=== PATIENT | male | born 1975 | race Caucasian/White ===

== ENCOUNTER 2020-06-21 17:22 | Emergency (ER) | payer OTHER, SELFPAY ==
[2020-06-21 17:31] VITALS: BP 129/83; PULSE 93; RESP 16; TEMP 37.4; O2SAT 98
--- NOTE | 2020-06-21 17:37 | ED.SKABFB ---
HPI - Skin/Abscess/Foreign Bdy General Chief complaint: Skin/Abscess/Foreign Body Stated complaint: right leg pain Time Seen by Provider: 06/21/20 17:38 Source: patient and RN notes reviewed Mode of arrival: ambulatory Limitations: no limitations History of Present Illness HPI narrative: 45-year-old male who presents to [facility] with complaints of 2-day history of right lower leg swelling, redness, warmth, and pain. Patient states he has past history of lower leg cellulitis to the same leg in the past. Patient states that his right lower leg is always somewhat red but its has increased in redness, no open wounds identified or any drainage from right lower leg. Right leg does have some warmth to mid lower leg aspect with pulses present to right foot. Patient states that he did have 102 F fever last evening and has been taking Advil for his discomfort. complaint: other (Cellulitis) Onset (ago): day(s) (2) Related Data Home Medications Medication Instructions Recorded Confirmed Lasix 06/21/20 alprazolam 06/21/20 dapagliflozin [Farxiga] mg 06/21/20 sertraline mg 06/21/20 Allergies Allergy/AdvReac Type Severity Reaction Status Date / Time acetaminophen Allergy Mild Unverified 02/01/10 00:09 hydrocodone Allergy Mild Unverified 02/01/10 00:09 Review of Systems Review of Systems: Narrative: CONSTITUTIONAL: Positive for intermittent fever, chills, or sweats. EYES: Denies visual changes, redness, or discharge. ENT: Denies rhinorrhea, congestion, sore throat, or otalgia. CARDIOVASCULAR: Denies chest pain, palpitations, or edema. RESPIRATORY: Denies cough or dyspnea. GASTROINTESTINAL: Denies abdominal pain, nausea, vomiting, or diarrhea. GENITOURINARY: Denies dysuria or hematuria. SKIN: Denies rash or itching. MUSCULOSKELETAL: Denies back pain, joint pain, or myalgia, redness with swelling, and warmth right lower leg, no drainage or open skin areas. NEUROLOGIC: Denies headache, numbness, or weakness. PSYCHIATRIC: Positive history of anxiety or depression. All systems reviewed & are unremarkable except as noted in HPI and below [facility] Past Medical History Medical History (Updated 06/22/20 @ 00:01 by Elva Datong) Anxiety and depression COPD (chronic obstructive pulmonary disease) Diabetes Family History Family History (Updated 06/24/20 @ 09:25 by Janeen Carcamo NP) Other No significant family history Social History Social History (Updated 06/21/20 @ 17:59 by Janeen Carcamo NP) Smoking status: Former smoker Living arrangements: with family Gender identity (if verbalized by the patient): Male Comments At time of signature, agree with nursing past medical, surgical, social and family history. There is no relevant family history pertinent to the presenting complaint Exam Narrative: Exam Narrative: GENERAL: Well-appearing, well-nourished, obese and in no acute distress. HEAD: Normocephalic, atraumatic. EYES: PERRLA and EOMI. ENT: Nares clear, no rhinorrhea or epistaxis. Mucous membranes moist. NECK: Supple.no lymphadenopathy CHEST: Clear to auscultation. No respiratory distress.SAO2 98% on room air HEART: Regular rate and rhythm. No murmur heard. Normal peripheral pulses. ABDOMEN: Soft, nontender, nondistended, normal active bowel sounds. EXTREMITIES: Normal range of motion.right lower leg edema.negative Vida sign, denies any pain to calf area, pedal pulse present on palpation. SKIN: Warm, dry, red lower right leg with no open wounds, monzon area to mid upper leg. NEURO: No focal deficits. Alert and oriented x3. Course Vital Signs Vital signs: Vital Signs Temperature 37.4 C 06/21/20 17:31 Pulse Rate 93 06/21/20 17:31 Respiratory Rate 16 06/21/20 17:31 Blood Pressure 129/83 06/21/20 17:31 Pulse Oximetry 98 06/21/20 17:31 Temperature 37.4 C 06/21/20 17:31 Pulse Rate 93 06/21/20 17:31 Respiratory Rate 16 06/21/20 17:31 Blood Pressure 129/83 06/21/20 1
== END 2020-06-21 17:54 | disposition home or self-care (01) ==
PROVIDERS: Emergency Provider Registered Nurse; PCP Internal Medicine
DX: L03.115 Cellulitis of right lower limb (principal); J44.9 Chronic obstructive pulmonary disease, unspecified; E11.9 Type 2 diabetes mellitus without complications; Z87.891 Personal history of nicotine dependence
CPT/HCPCS: 99203; G0463

== ENCOUNTER 2023-07-21 21:51 | Inpatient (IN) | payer OTHER, SELFPAY ==
[2023-07-21] VITALS (11 sets, daily range): BP systolic 125–147; BP diastolic 67–80; PULSE 101–120; RESP 15–23; TEMP 37.2–38.3; O2SAT 96–100
--- NOTE | ~2023-07-21 | XR_ITS ---
Portable chest x-ray Comparison: 12/15/2013 Clinical History: Sepsis Findings: Focal hazy opacity right lung base noted. Left lung clear. Cardiomediastinal silhouette i s stable. Bones and soft tissues are unremarkable. Impression: Focal haziness right lung base. Correlate for atelectasis or pneumonia. Reviewed, dictated and finalized at [facility]. Impression: Focal haziness right lung base. Correlate for atelectasis or pneumonia.
--- NOTE | ~2023-07-21 | US_ITS ---
EXAMINATION: US venous doppler [facility] DATE: 07/22/2023 12:22 INDICATION: Left lower limb pain, swelling and erythema TECHNIQUE: Grayscale ultrasound images without and with compression and Doppler ultrasound images of the left lower extremity veins were obtained. COMPARISON: None. FINDINGS: The visualized portions of left common femoral vein, profunda (deep) femoral vein, femoral vein, popl iteal vein, peroneal veins, posterior tibial veins and greater saphenous vein outflow are patent. IMPRESSION: 1. No deep venous thrombosis in the left lower limb. Reviewed, dictated and finalized at location A.
--- NOTE | 2023-07-21 22:08 | ED.FEVER ---
HPI - Fever General Chief Complaint: Fever <SHARON Mensah Last Filed: 07/22/23 13:50> Stated Complaint: bodyaches, fever, cellulitis? <SHARON Menash Last Filed: 07/22/23 13:50> Time Seen by Provider: 07/21/23 22:06 <SHARON Mensah Last Filed: 07/22/23 13:50> Source: patient <SHARON Mensah Last Filed: 07/22/23 13:50> Mode of arrival: ambulatory <SHARON Mensah Last Filed: 07/22/23 13:50> Limitations: no limitations <SHARON Mensah Last Filed: 07/22/23 13:50> History of Present Illness HPI Narrative: Patient is a 48-year-old male, with pmh of prediabetes, who presents to the ED with report of fever, myalgias, left lower extremity cellulitis. Patient reports he began feeling ill this afternoon with diffuse body aches, chills, fever, nausea, headache. He does report having increased pain in his left lower extremity with some redness in this area. He does have history of recurrent cellulitis of his lower extremities, particularly his left lower extremity and states these symptoms feel similar to the episodes he has experienced in the past. Patient took ibuprofen prior to arrival. He denies significant swelling in lower extremity. Denies history of blood clots. Denies chest pain or shortness breath. Denies cough or cold symptoms. Denies sick contacts. <SHARON Mensah Last Filed: 07/22/23 13:50> Related Data Home Medications: Home Medications Medication Instructions Recorded Confirmed alprazolam 1 mg tablet 1 mg PO TID PRN Anxiety 06/21/20 07/22/23 sertraline 100 mg tablet 100 mg PO DAILY 06/21/20 07/22/23 albuterol sulfate 90 mcg/actuation 2 puff inhalation PRN PRN 07/22/23 07/22/23 aerosol inhaler Shortness Of Breath Or Wheezing furosemide 80 mg tablet (Lasix) 80 mg PO DAILY 07/22/23 07/22/23 ibuprofen 600 mg tablet 600 mg PO TID PRN Pain 07/22/23 07/22/23 <Maggie Virk PA-C - Last Filed: 07/22/23 13:50> Allergies/Adverse Reactions: Allergies Allergy/AdvReac Type Severity Reaction Status Date / Time hydrocodone Allergy Mild Gastrointestinal Verified 07/21/23 22:47 Upset <Maggie Virk PA-C - Last Filed: 07/22/23 13:50> Review of Systems Review of Systems: CONSTITUTIONAL: See HPI. CARDIOVASCULAR: Denies chest pain, palpitations, or edema. RESPIRATORY: Denies cough or dyspnea. GASTROINTESTINAL: Reports nausea. Denies abdominal pain, vomiting, or diarrhea. MUSCULOSKELETAL: Reports myalgia. NEUROLOGIC: See HPI. <SHARON Mensah Last Filed: 07/22/23 13:50> All systems reviewed & are unremarkable except as noted in HPI and below <SHARON Mensah Last Filed: 07/22/23 13:50> [facility] Past Medical History Medical History: Medical History Anxiety and depression COPD (chronic obstructive pulmonary disease) Diabetes <SHARON Mensah Last Filed: 07/22/23 13:50> Family History Family History: Family History Other No significant family history <SHARON Mensah Last Filed: 07/22/23 13:50> Social History Social History: Social History Smoking status: Former smoker Alcohol intake: current Drinks per week: 1 Substance use: never Do You Feel Safe in your Home?: Yes Lack of Transportation: No Lack of Food: Never True Current Housing: I Have Housing Concerned About Future Housing: No Difficulty Paying Gas/Electric Bills: No Difficulty Paying for Meds: No Currently Unemployed: No Education: Associate Degree Difficulty w/ Childcare or Family Care: No Living arrangements: with family Gender identity (if verbalized by the patient): Male Spiritual care concerns: No <Maggie Virk PA-C -
[2023-07-21] MEDS: SODIUM CHLORIDE 0.9% IV 1,000 ML 999 ML IV CONT ×2 (22:47→23:31)
[2023-07-21] MEDS: ACETAMINOPHEN 500 MG TABLET 1000 MG PO (22:48)
[2023-07-21 22:51] LABS: Hematocrit 41.5 % (42.0-52.0); Hemoglobin 13.7 g/dL (14.0-18.0); Mean Corpuscular Hemoglobin 27.2 pg (26-34); Mean Corpuscular Volume 82.5 fl (80-100); Mean Platelet Volume 11.4 fl (7.4-10.4); Platelet Count Result 159 k/mm3 (150-375); Red Blood Count 5.03 M/mm3 (4.6-6.20); Red Cell Distribution Width 12.9 % (11.5-14.5); White Blood Count 22.4 K/mm3 (4.5-10.0)
[2023-07-21 23:16] LABS: Lactic Acid Reflex 2.4 mmol/L (0.7-2.0)
[2023-07-21 23:22] LABS: Alanine Aminotransferase 36 U/L (6-50); Albumin Level 4.1 g/dL (3.5-5.1); Alkaline Phosphatase 67 U/L (38-126); Anion Gap 11 mmol/L (4-12); Aspartate Amino Transferase 24 U/L (17-59); Bilirubin,Total 1.2 mg/dL (0.2-1.3); Blood Urea Nitrogen 16 mg/dL (9-20); CRP 5.4 mg/dL (<1.0); Carbon Dioxide 22 mmol/L (22-30); Chloride 98 mmol/L (98-107); Estimated CRCL calculation 130 ml/min; Estimated Glomerular Filt Rate > 60; Glucose 274 mg/dL (65-110); Potassium 4.3 mmol/L (3.4-5.0); Sodium 131 mmol/L (137-145)
[2023-07-21 23:33] LABS: Influenza A QL RT-PCR Negative (Negative); Influenza B QL RT-PCR Negative (Negative); RSV RNA, RT-PCR Negative (Negative); SARS-CoV-2 RNA PCR Negative (Negative)
[2023-07-21 23:43] LABS: Band Neutrophils Percent 8 % (0-6); Lymphocytes Absolute Manual 0.67 K/mm3 (1.1-4.5); Monocytes Absolute Manual 0.89 K/mm3 (0.1-0.90); Monocytes Percent Manual 4 % (3-9); Neutrophils Absolute Manual 20.83 K/mm3 (1.3-6.7); Neutrophils Percent Manual 85 % (46-73); Platelet Estimate Adequate (Adequate); Total Cells Counted 100
[2023-07-21 23:44] LABS: Schistocytes None Seen
[2023-07-21 23:45] LABS: Partial Thromboplastin Time 27.1 Seconds (22.3-36.8)
[2023-07-21 23:53] LABS: D Dimer 0.34 ug/mL (<0.48)
[2023-07-22] VITALS (21 sets, daily range): BP systolic 125–147; BP diastolic 59–77; PULSE 92–107; RESP 12–20; TEMP 36.6–38.3; O2SAT 93–98; BMI 51.1
[2023-07-22 00:26] LABS: Appearance Urine Clear (Clear); Bilirubin Urine Negative (Negative); Blood Urine Negative (Negative); Color Urine Yellow (Yellow); Glucose Urine UA 3+ mg/dL (Negative); Ketones Urine Trace mg/dL (Negative); Leukocyte Esterase Ur Negative LEU/UL (Negative); Nitrate Urine Negative (Negative); Protein Urine Negative (Negative); Specific Grav Ur 1.026 (1.001-1.035); Urobilinogen Urine 0.2 mg/dL (<2.0)
[2023-07-22 00:28] LABS: Add Urine Microscopic? NO
--- NOTE | 2023-07-22 00:39 | PC.NURSE ---
Patients voices concern about being admitted and states I may just want to take him somewhere else. ERP notified and going to speak with patient.
[2023-07-22] MEDS: ceFAZolin 1 GM/NS 50 ML 1 GM/50 ML BAG IVPB (00:43)
--- NOTE | 2023-07-22 01:10 | PC.NURSE ---
MAR is down at this time, patient IV abx finished infusing at this time.
[2023-07-22 01:48] LABS: Reflex Lactic Acid Yes or No Add Lactic
--- NOTE | 2023-07-22 02:34 | PM.IMHP ---
H&P: HPI History of Present Illness Date/Time: 07/22/23 02:34 Chief Complaint: Patient into the ER for evaluation with complaints of left lower leg swelling and redness Narrative: Our patient is a pleasant 48 years old morbidly obese white male who came to the ER for evaluation complaining of fever, chills, muscle aches, left lower leg swelling and redness. He complains of swelling of the left lower leg for couple of days but noticed redness and pain today. He complains of infections in his legs, left more than the right on few occasions over the last couple of years. He was diagnosed with diabetes mellitus earlier, he lost a lot of weight but not taking any diabetic medications. Workup was done in the ER which showed finding consistent with sepsis caused by bilateral lower leg cellulitis, left more than right. He was given aggressive septic doses of IV fluids and antibiotics in the ED and being admitted for medical management, further evaluation and workup. Review of Systems Review of Systems: 14 systems were reviewed with pertinent positives and negatives per HPI. Except as documented in the HPI/progress notes, all other systems were reviewed and are negative. All systems reviewed & are unremarkable except as noted in HPI and below PMF[facility] Past Medical History Medical History Anxiety and depression COPD (chronic obstructive pulmonary disease) Diabetes Family History Family History Other No significant family history Social History Social History Smoking status: Former smoker Alcohol intake: current Drinks per week: 1 Substance use: never Do You Feel Safe in your Home?: Yes Lack of Transportation: No Lack of Food: Never True Current Housing: I Have Housing Concerned About Future Housing: No Difficulty Paying Gas/Electric Bills: No Difficulty Paying for Meds: No Currently Unemployed: No Education: Associate Degree Difficulty w/ Childcare or Family Care: No Living arrangements: with family Gender identity (if verbalized by the patient): Male Spiritual care concerns: No Meds Home Medications and Allergies Home Medications Medication Instructions Recorded Confirmed Type alprazolam 1 mg tablet 1 mg PO TID PRN Anxiety 06/21/20 07/22/23 History sertraline 100 mg tablet 100 mg PO DAILY 06/21/20 07/22/23 History albuterol sulfate 90 mcg/actuation 2 puff inhalation PRN PRN 07/22/23 07/22/23 History aerosol inhaler Shortness Of Breath Or Wheezing furosemide 80 mg tablet (Lasix) 80 mg PO DAILY 07/22/23 07/22/23 History ibuprofen 600 mg tablet 600 mg PO TID PRN Pain 07/22/23 07/22/23 History Allergies Allergy/AdvReac Type Severity Reaction Status Date / Time hydrocodone Allergy Mild Gastrointestinal Verified 07/21/23 22:47 Upset Vital Signs Vital Signs - 24 hr 07/21/23 21:53 07/21/23 22:09 07/21/23 22:11 Temperature 38.3 C H Pulse Rate 120 H Respiratory Rate 20 Blood Pressure 125/67 133/73 Pulse Oximetry 100 97 98 Oxygen Delivery Room Air 07/21/23 22:15 07/21/23 22:30 07/21/23 22:45 Temperature Pulse Rate 112 H 107 H 108 H Respiratory Rate 17 15 18 Blood Pressure Pulse Oximetry 96 98 97 Oxygen Delivery 07/21/23 23:00 07/21/23 23:01 07/21/23 23:15 Temperature Pulse Rate 103 H 104 H 106 H Respiratory Rate 17 15 15 Blood Pressure 147/80 H Pulse Oximetry 99 Oxygen Delivery 07/21/23 23:30 07/21/23 23:15 07/21/23 23:46 Temperature 37.2 C Pulse Rate 107 H 101 H Respiratory Rate 23 H 19 Blood Pressure Pulse Oximetry 98 96 Oxygen Delivery 07/22/23 00:00 07/22/23 00:15 07/22/23 00:30 Temperature Pulse Rate 100 97 Respiratory Rate 17 Blood Pressure Pulse Oximetry 98 97 97 Oxygen Delivery 07/22/23 00:45 07/22/23 01:00 07/22/23 01:15
[2023-07-22 03:07] LABS: Lactic Acid 2.4 mmol/L (0.7-2.0); Lactic Acid Reflex 2.4 mmol/L (0.7-2.0)
[2023-07-22 03:14] LABS: Hemoglobin A1C 7.7 % (<5.7)
[2023-07-22 03:16] LABS: NT Pro B Type Natriuretic Pept 78 pg/mL (19.9-100)
[2023-07-22] MEDS: ACETAMINOPHEN 325 MG TABLET 650 MG PO ×3 (05:33→21:40)
[2023-07-22] MEDS: SODIUM CHLORIDE 0.9% IV 1,000 ML 75 ML IV CONT (05:33)
[2023-07-22 06:24] LABS: Lactic Acid Reflex 2.8 mmol/L (0.7-2.0)
[2023-07-22 06:27] LABS: Basophils Absolute Auto 0.1 K/mm3 (0.0-0.1); Basophils Percent Auto 0.3 % (0.2-1.2); Eosinophils Absolute Auto 0.1 K/mm3 (0-0.3); Eosinophils Percent Auto 0.5 % (0-4.4); Hemoglobin 12.7 g/dL (14.0-18.0); Immature Granulocyte Absolute 0.13 K/mm3 (0.00-0.031); Immature Granulocyte Percent A 0.9 % (0-0.5); Immature Platelet Fraction Pct 7.7 % (0.9-11.2); Lymphocytes Absolute Auto 0.49 K/mm3 (0.9-3.2); Lymphocytes Percent Auto 3.4 % (18.3-44.2); Mean Corpuscular HGB Conc 32.6 g/dl (32-36); Mean Corpuscular Hemoglobin 27.5 pg (26-34); Mean Corpuscular Volume 84.6 fl (80-100); Mean Platelet Volume 11.8 fl (7.4-10.4); Monocytes Absolute Auto 0.8 K/mm3 (0.1-0.6); Monocytes Percent Auto 5.2 % (2.6-8.5); Neutrophils Absolute Auto 13.1 K/mm3 (1.3-6.7); Neutrophils Percent Auto 89.7 % (45.5-73.1); Platelet Count Result 132 k/mm3 (150-375); Red Blood Count 4.61 M/mm3 (4.6-6.20); White Blood Count 14.6 K/mm3 (4.5-10.0)
[2023-07-22 06:30] LABS: Anion Gap 6 mmol/L (4-12); Blood Urea Nitrogen 15 mg/dL (9-20); Calcium 8.4 mg/dL (8.4-10.2); Carbon Dioxide 23 mmol/L (22-30); Chloride 103 mmol/L (98-107); Estimated CRCL calculation 151 ml/min; Estimated Glomerular Filt Rate > 60; Glucose 251 mg/dL (65-110); Magnesium 1.7 mg/dL (1.6-2.3); Phosphorus 2.7 mg/dL (2.5-4.5); Sodium 132 mmol/L (137-145)
[2023-07-22 07:54] LABS: Glucose Point of Care 245 mg/dl (65-105)
[2023-07-22] MEDS: cefTRIAXone 2 GM/NS 100 ML 2 GM/100 ML BAG IVPB (09:18)
[2023-07-22] MEDS: VANCOMYCIN 1,500 MG/NS 500 ML 1,500 MG/500 ML BAG 250 MG IVPB ×2 (09:20→21:14)
--- NOTE | 2023-07-22 10:52 | PM.IMPN ---
Progress Note: A&P Assessment and Plan (1) Sepsis: Qualifiers: Sepsis acute organ dysfunction status: unspecified Sepsis type: sepsis due to unspecified organism Qualified Code(s): A41.9 - Sepsis, unspecified organism Code(s): A41.9 - Sepsis, unspecified organism Status: Acute Assessment and Plan: Lactic acid still elevated s/p IV fluids and initial antibiotics. Escalated antibiotics. Discussed importance managing elevated blood sugar to help clear lactic acidosis. (2) Cellulitis of left lower extremity: Code(s): L03.116 - Cellulitis of left lower limb Status: Acute Assessment and Plan: Recurrent problem (3) Elevated blood sugar: Code(s): R73.9 - Hyperglycemia, unspecified Status: Acute Assessment and Plan: Fingerstick glucose before meals and bedtime, SSI Patient was not able to tolerate metformin in the past Very long discussion held regarding diabetes status and pathophysiology of such (4) Lactic acidosis: Code(s): E87.20 - Acidosis, unspecified Status: Acute Assessment and Plan: Lactic acid still elevated s/p IV fluids and initial antibiotics. Escalated antibiotics. Discussed importance managing elevated blood sugar to help clear lactic acidosis (5) Morbid obesity due to excess calories: Code(s): E66.01 - Morbid (severe) obesity due to excess calories Status: Acute (6) Personal history of noncompliance with medical treatment and regimen: Code(s): Z91.199 - Patient's noncompliance with other medical treatment and regimen due to unspecified reason Status: Acute Assessment and Plan: Initially patient refusing multiple medications. He still is likely to refuse DVT prophylaxis but is now accepting insulin to keep blood sugars better controlled. Time Spent With Patient Time with patient: Greater than 35 minutes Subjective Date/time seen: 07/22/23 10:52 Interval history: 48-year-old male admitted for left leg cellulitis afebrile elevated white blood cell count elevated lactic acid tachycardic status post IV fluid resuscitation lactic acid still climbing last 2.8 and 16 cm. A1c 7.7 fingerstick glucose with breakfast was 240 but patient was declining insulin. Long discussion with patient and family regarding risk factors for DVT and untreated diabetes with sepsis. Spent over 1 hour at bedside discussing with patient and family, still going to decline Lovenox but is accepting insulin for blood sugar control. Will give dose of p.r.n. Lasix patient takes 80 mg every few days for swelling. Decreased IV fluids to 50 mL/hr. IV antibiotics escalated from initial choice of to Rocephin and vancomycin. Ultrasound lower extremity for DVT was negative. Blood cultures in process. No other suspected source of infection. Review of Systems Review of Systems: 14 systems were reviewed with pertinent positives and negatives per HPI. Except as documented in the HPI/progress notes, all other systems were reviewed and are negative. All systems reviewed & are unremarkable except as noted in HPI and below Exam Narrative: General physical exam: Morbidly obese white male, sitting in a chair with left leg elevated on to the bed Head/eyes: Atraumatic, EOMI, PERRLA ENT: + dry mucous membranes, nasal passages clear Neck: Supple, full range of motion, trachea midline CVS: S1 + S2, regular rate and rhythm, no murmurs Respiratory: Bilaterally fair air entry in both lung allison, mild B/L crackles, symmetric chest expansion, no distress Abdomen: Soft, non-tender, bowel sounds +ve, no organomegaly Extremities: No clubbing, no cyanosis, + left lower leg edema, no calf tenderness Musculoskeletal: Moves all, adequate range of motion, no muscle spasms Skin: Warm, dry, no jaundice, no cyanosis, ++ left lower leg erythema, + mild right lower leg erythema Neurological: Awake, alert, oriented x 3, cranial nerves II-XII intact, no focal neurol
[2023-07-22 12:00] LABS: Glucose Point of Care 213 mg/dl (65-105)
[2023-07-22] MEDS: INSULIN ASPART (*BKC) 100 UNITS/ML SUB-Q (12:29)
[2023-07-22 16:25] LABS: Glucose Point of Care 211 mg/dl (65-105)
[2023-07-22] MEDS: FUROSEMIDE 40 MG TABLET 80 MG PO (17:02)
[2023-07-22 20:28] LABS: Glucose Point of Care 192 mg/dl (65-105)
[2023-07-23 04:39] VITALS: BP 139/70; PULSE 84; RESP 18; TEMP 37.1; O2SAT 100
[2023-07-23] MEDS: ACETAMINOPHEN 325 MG TABLET 650 MG PO (06:38)
[2023-07-23 06:52] LABS: Basophils Percent Auto 0.4 % (0.2-1.2); Eosinophils Absolute Auto 0.1 K/mm3 (0-0.3); Eosinophils Percent Auto 0.6 % (0-4.4); Immature Granulocyte Absolute 0.06 K/mm3 (0.00-0.031); Immature Granulocyte Percent A 0.7 % (0-0.5); Lymphocytes Absolute Auto 1.02 K/mm3 (0.9-3.2); Lymphocytes Percent Auto 12.4 % (18.3-44.2); Mean Corpuscular HGB Conc 31.7 g/dl (32-36); Mean Corpuscular Hemoglobin 27.3 pg (26-34); Mean Platelet Volume 11.7 fl (7.4-10.4); Monocytes Absolute Auto 0.9 K/mm3 (0.1-0.6); Monocytes Percent Auto 11.1 % (2.6-8.5); Neutrophils Absolute Auto 6.1 K/mm3 (1.3-6.7); Neutrophils Percent Auto 74.8 % (45.5-73.1); Platelet Count Result 146 k/mm3 (150-375); Red Blood Count 4.77 M/mm3 (4.6-6.20); Red Cell Distribution Width 13.2 % (11.5-14.5); White Blood Count 8.2 K/mm3 (4.5-10.0)
[2023-07-23 07:12] LABS: Procalcitonin 2.3 ng/mL
[2023-07-23 07:45] LABS: Alanine Aminotransferase 36 U/L (6-50); Alkaline Phosphatase 62 U/L (38-126); Anion Gap 5 mmol/L (4-12); Aspartate Amino Transferase 27 U/L (17-59); Bilirubin,Total 0.6 mg/dL (0.2-1.3); Blood Urea Nitrogen 11 mg/dL (9-20); CRP 23.1 mg/dL (<1.0); Calcium 8.6 mg/dL (8.4-10.2); Carbon Dioxide 27 mmol/L (22-30); Chloride 103 mmol/L (98-107); Estimated CRCL calculation 133 ml/min; Estimated Glomerular Filt Rate > 60; Glucose 196 mg/dL (65-110); Potassium 3.9 mmol/L (3.4-5.0); Sodium 135 mmol/L (137-145)
[2023-07-23 07:51] LABS: Glucose Point of Care 198 mg/dl (65-105)
[2023-07-23] MEDS: cefTRIAXone 2 GM/NS 100 ML 2 GM/100 ML BAG IVPB (08:38)
[2023-07-23] MEDS: VANCOMYCIN 1,500 MG/NS 500 ML 1,500 MG/500 ML BAG 250 MG IVPB (09:52)
[2023-07-23] MEDS: IBUPROFEN 400 MG TABLET PO ×2 (09:55→21:09)
[2023-07-23] MEDS: predniSONE 20 MG TABLET 80 MG PO (11:14)
[2023-07-23 11:17] LABS: Lactic Acid Reflex 2.2 mmol/L (0.7-2.0)
[2023-07-23 11:19] LABS: Rheumatoid Factor < 12.0 IU/ML (<12)
[2023-07-23 11:24] LABS: Complement C3 152 mg/dL (88-165)
[2023-07-23 11:42] LABS: Glucose Point of Care 262 mg/dl (65-105)
[2023-07-23 11:42] LABS: Erythrocyte Sedimentation Rate 53 mm/hr (0-20)
[2023-07-23] MEDS: INSULIN ASPART (*BKC) 100 UNITS/ML SUB-Q ×2 (11:53→16:41)
--- NOTE | 2023-07-23 12:03 | PM.IMPN ---
Progress Note: A&P Assessment and Plan (1) Sepsis: Qualifiers: Sepsis acute organ dysfunction status: unspecified Sepsis type: sepsis due to unspecified organism Qualified Code(s): A41.9 - Sepsis, unspecified organism Code(s): A41.9 - Sepsis, unspecified organism Status: Acute Assessment and Plan: Lactic acid still elevated s/p IV fluids and initial antibiotics. Escalated antibiotics. Discussed importance managing elevated blood sugar to help clear lactic acidosis. 07/22: Procalcitonin 2.3 this morning, continue IV vancomycin and Rocephin targeting higher vanc trough. Spoke with ID pharmacy who agrees with this plan. Will concomitant lead treat for vasculitis after additional labs drawn. (2) Cellulitis of left lower extremity: Code(s): L03.116 - Cellulitis of left lower limb Status: Acute Assessment and Plan: Recurrent problem 07/22: Procalcitonin 2.3 this morning, continue IV vancomycin and Rocephin targeting higher vanc trough. Spoke with ID pharmacy who agrees with this plan. Will concomitant lead treat for vasculitis after additional labs drawn. (3) Elevated blood sugar: Code(s): R73.9 - Hyperglycemia, unspecified Status: Acute Assessment and Plan: Fingerstick glucose before meals and bedtime, SSI Patient was not able to tolerate metformin in the past Very long discussion held regarding diabetes status and pathophysiology of such 07/22: Patient aware this steroids will cause blood sugar to elevate even further, continue sliding scale insulin while hospitalized. (4) Lactic acidosis: Code(s): E87.20 - Acidosis, unspecified Status: Acute Assessment and Plan: Lactic acid still elevated s/p IV fluids and initial antibiotics. Escalated antibiotics. Discussed importance managing elevated blood sugar to help clear lactic acidosis 07/22: Lactic acid 2.2 this morning, I canceled reflex draw. Will check daily with morning labs. (5) Morbid obesity due to excess calories: Code(s): E66.01 - Morbid (severe) obesity due to excess calories Status: Acute (6) Personal history of noncompliance with medical treatment and regimen: Code(s): Z91.199 - Patient's noncompliance with other medical treatment and regimen due to unspecified reason Status: Acute Assessment and Plan: Initially patient refusing multiple medications. He still is likely to refuse DVT prophylaxis but is now accepting insulin to keep blood sugars better controlled. 07/22: After long discussion with patient regarding course of care and reasons for each order, patient is much more compliant and appreciative of care provided. (7) Vasculitis: Code(s): I77.6 - Arteritis, unspecified Status: Acute Assessment and Plan: 07/22: Extensive lab workup initiated prior to steroid initiation. Patient has recurrent presentations for swollen leg with fever that appears to be cellulitis but often requires prolonged treatment. Each flare tends to be worse than previous. Patient recently under increased stress due to family member in the hospital and he is spend prolonged amount of time at bedside. Old spotted stains on right lower extremity noted that are similar to other individuals who have had vasculitis in the past. Areas of his current erythematous leg her also darkening in a pattern similar to involving vasculitis. Initiate prednisone 80 mg today, 60 mg tomorrow then 40 mg daily for 5 days. Continue IV antibiotics hopefully transitioning to orals and discharge in 2 days while treating both pathologies. This swelling is causing extreme pain not well treated with Tylenol and ibuprofen. We will add tramadol q.4 hours p.r.n. for severe pain patient is not able to tolerate hydrocodone due to severe nausea vomiting. However, if pain is not well controlled may need to escalate pain medication and nausea for patient to be able to tolerate. Time Spent With Patient
[2023-07-23 13:50] LABS: Reflex Lactic Acid Yes or No Add Lactic
[2023-07-23 14:00] VITALS: BP 140/77; PULSE 82; RESP 16; TEMP 36.1; O2SAT 96
[2023-07-23 16:41] LABS: Glucose Point of Care 298 mg/dl (65-105)
[2023-07-23 21:06] LABS: Glucose Point of Care 262 mg/dl (65-105)
[2023-07-23 21:41] VITALS: BP 162/85; PULSE 93; RESP 20; TEMP 36.4; O2SAT 99
[2023-07-23 21:57] LABS: Vancomycin Trough < 5.0 ug/mL (10.0-20.0)
[2023-07-23] MEDS: VANCOMYCIN 2,000 MG/NS 500 ML 2,000 MG/500 ML BAG 250 MG IVPB (22:40)
[2023-07-24] MEDS: VANCOMYCIN 2,000 MG/NS 500 ML 2,000 MG/500 ML BAG 250 MG IVPB ×3 (05:40→23:08)
[2023-07-24 05:53] LABS: Basophils Percent Auto 0.3 % (0.2-1.2); Eosinophils Percent Auto 0.2 % (0-4.4); Hematocrit 41.1 % (42.0-52.0); Hemoglobin 13.1 g/dL (14.0-18.0); Immature Granulocyte Absolute 0.09 K/mm3 (0.00-0.031); Lymphocytes Absolute Auto 1.31 K/mm3 (0.9-3.2); Lymphocytes Percent Auto 15.1 % (18.3-44.2); Mean Corpuscular HGB Conc 31.9 g/dl (32-36); Mean Corpuscular Volume 84.7 fl (80-100); Mean Platelet Volume 11.6 fl (7.4-10.4); Monocytes Absolute Auto 1.1 K/mm3 (0.1-0.6); Monocytes Percent Auto 12.8 % (2.6-8.5); Neutrophils Absolute Auto 6.1 K/mm3 (1.3-6.7); Neutrophils Percent Auto 70.6 % (45.5-73.1); Platelet Count Result 162 k/mm3 (150-375); Red Blood Count 4.85 M/mm3 (4.6-6.20); Red Cell Distribution Width 12.8 % (11.5-14.5); White Blood Count 8.7 K/mm3 (4.5-10.0)
[2023-07-24 06:00] VITALS: BP 138/87; PULSE 73; RESP 18; TEMP 36.5; O2SAT 100
[2023-07-24 06:15] LABS: Alanine Aminotransferase 35 U/L (6-50); Albumin Level 3.9 g/dL (3.5-5.1); Alkaline Phosphatase 57 U/L (38-126); Anion Gap 5 mmol/L (4-12); Aspartate Amino Transferase 22 U/L (17-59); Bilirubin,Total 0.5 mg/dL (0.2-1.3); Blood Urea Nitrogen 12 mg/dL (9-20); CRP 15.5 mg/dL (<1.0); Calcium 8.8 mg/dL (8.4-10.2); Carbon Dioxide 27 mmol/L (22-30); Chloride 104 mmol/L (98-107); Estimated CRCL calculation 151 ml/min; Estimated Glomerular Filt Rate > 60; Glucose 195 mg/dL (65-110); Magnesium 2.2 mg/dL (1.6-2.3); Potassium 4.2 mmol/L (3.4-5.0); Sodium 136 mmol/L (137-145)
[2023-07-24 06:31] LABS: Procalcitonin 1.4 ng/mL
[2023-07-24 07:05] LABS: Erythrocyte Sedimentation Rate 59 mm/hr (0-20)
--- NOTE | 2023-07-24 07:29 | PM.IMPN ---
Progress Note: A&P Assessment and Plan (1) Sepsis: Qualifiers: Sepsis acute organ dysfunction status: unspecified Sepsis type: sepsis due to unspecified organism Qualified Code(s): A41.9 - Sepsis, unspecified organism Code(s): A41.9 - Sepsis, unspecified organism Status: Acute Assessment and Plan: Lactic acid still elevated s/p IV fluids and initial antibiotics. Escalated antibiotics. Discussed importance managing elevated blood sugar to help clear lactic acidosis. 07/22: Procalcitonin 2.3 this morning, continue IV vancomycin and Rocephin targeting higher vanc trough. Spoke with ID pharmacy who agrees with this plan. Will concomitant lead treat for vasculitis after additional labs drawn. 07/23: Labs are normalizing. Lactic has cleared. Procal 1.5 today. Vanc and rocehpin continue today and likely can transition to oral agents tomorrow. Blood cultures with NGTD. (2) Cellulitis of left lower extremity: Code(s): L03.116 - Cellulitis of left lower limb Status: Acute Assessment and Plan: Recurrent problem 07/22: Procalcitonin 2.3 this morning, continue IV vancomycin and Rocephin targeting higher vanc trough. Spoke with ID pharmacy who agrees with this plan. Will concomitant lead treat for vasculitis after additional labs drawn. 07/23: See above. (3) Elevated blood sugar: Code(s): R73.9 - Hyperglycemia, unspecified Status: Acute Assessment and Plan: Fingerstick glucose before meals and bedtime, SSI Patient was not able to tolerate metformin in the past Very long discussion held regarding diabetes status and pathophysiology of such 07/22: Patient aware this steroids will cause blood sugar to elevate even further, continue sliding scale insulin while hospitalized. 07/23: Stable. Blood glucose 270 before lunch today after steroid dose. SSI as needed. A1C 7.7% this admission. Recommend starting oral agents at discharge if he is agreeable. (4) Lactic acidosis: Code(s): E87.20 - Acidosis, unspecified Status: Acute Assessment and Plan: Lactic acid still elevated s/p IV fluids and initial antibiotics. Escalated antibiotics. Discussed importance managing elevated blood sugar to help clear lactic acidosis 07/22: Lactic acid 2.2 this morning, I canceled reflex draw. Will check daily with morning labs. 07/23: Lactic has cleared. (5) Morbid obesity due to excess calories: Code(s): E66.01 - Morbid (severe) obesity due to excess calories Status: Acute (6) Personal history of noncompliance with medical treatment and regimen: Code(s): Z91.199 - Patient's noncompliance with other medical treatment and regimen due to unspecified reason Status: Acute Assessment and Plan: Initially patient refusing multiple medications. He still is likely to refuse DVT prophylaxis but is now accepting insulin to keep blood sugars better controlled. 07/22: After long discussion with patient regarding course of care and reasons for each order, patient is much more compliant and appreciative of care provided. 07/23: States he has not been taking his lasix like he should because he has been at the bedside with his grandmother who has been ill the last month. He understands the importance of medication compliance. (7) Vasculitis: Code(s): I77.6 - Arteritis, unspecified Status: Acute Assessment and Plan: 07/22: Extensive lab workup initiated prior to steroid initiation. Patient has recurrent presentations for swollen leg with fever that appears to be cellulitis but often requires prolonged treatment. Each flare tends to be worse than previous. Patient recently under increased stress due to family member in the hospital and he is spend prolonged amount of time at bedside. Old spotted stains on right lower extremity noted that are similar to other individuals who have had vasculitis in the past. Areas of his current erythematous leg her also darken
[2023-07-24 07:38] LABS: Glucose Point of Care 181 mg/dl (65-105)
[2023-07-24 08:26] VITALS: PULSE 76; O2SAT 100
[2023-07-24] MEDS: predniSONE 20 MG TABLET 60 MG PO (08:26)
[2023-07-24] MEDS: cefTRIAXone 2 GM/NS 100 ML 2 GM/100 ML BAG IVPB (08:28)
[2023-07-24 11:33] LABS: Glucose Point of Care 270 mg/dl (65-105)
[2023-07-24] MEDS: INSULIN ASPART (*BKC) 100 UNITS/ML SUB-Q ×2 (11:37→16:57)
[2023-07-24] MEDS: IBUPROFEN 400 MG TABLET PO ×2 (11:41→23:10)
[2023-07-24 13:28] LABS: Myeloperoxidase Ab <1.0 AI
[2023-07-24 13:56] VITALS: BP 148/69; PULSE 90; RESP 18; TEMP 36.1; O2SAT 97
[2023-07-24 15:05] LABS: Complement Total CH50 >60 U/mL (31-60)
[2023-07-24 15:05] LABS: Homocysteine 10.6 umol/L (<11.4)
[2023-07-24 16:42] LABS: Glucose Point of Care 315 mg/dl (65-105)
[2023-07-24 21:25] LABS: Glucose Point of Care 229 mg/dl (65-105)
[2023-07-24 21:53] VITALS: BP 160/86; PULSE 78; RESP 18; TEMP 36.9; O2SAT 99
[2023-07-24 21:55] LABS: Vancomycin Trough 11.6 ug/mL (10.0-20.0)
[2023-07-24] MEDS: MELATONIN 5 MG TABLET PO (23:08)
[2023-07-25 05:35] LABS: Basophils Percent Auto 0.5 % (0.2-1.2); Eosinophils Percent Auto 0.4 % (0-4.4); Hematocrit 36.6 % (42.0-52.0); Hemoglobin 11.8 g/dL (14.0-18.0); Immature Granulocyte Absolute 0.09 K/mm3 (0.00-0.031); Immature Granulocyte Percent A 1.2 % (0-0.5); Lymphocytes Absolute Auto 1.97 K/mm3 (0.9-3.2); Lymphocytes Percent Auto 26.5 % (18.3-44.2); Mean Corpuscular HGB Conc 32.2 g/dl (32-36); Mean Corpuscular Hemoglobin 26.9 pg (26-34); Mean Corpuscular Volume 83.6 fl (80-100); Mean Platelet Volume 11.3 fl (7.4-10.4); Monocytes Absolute Auto 0.7 K/mm3 (0.1-0.6); Neutrophils Absolute Auto 4.6 K/mm3 (1.3-6.7); Neutrophils Percent Auto 61.4 % (45.5-73.1); Platelet Count Result 186 k/mm3 (150-375); Red Blood Count 4.38 M/mm3 (4.6-6.20); Red Cell Distribution Width 12.8 % (11.5-14.5); White Blood Count 7.4 K/mm3 (4.5-10.0)
[2023-07-25] MEDS: VANCOMYCIN 2,000 MG/NS 500 ML 2,000 MG/500 ML BAG 250 MG IVPB (05:40)
[2023-07-25 05:45] LABS: Alanine Aminotransferase 40 U/L (6-50); Albumin Level 3.6 g/dL (3.5-5.1); Alkaline Phosphatase 57 U/L (38-126); Anion Gap 8 mmol/L (4-12); Aspartate Amino Transferase 28 U/L (17-59); Bilirubin,Total 0.4 mg/dL (0.2-1.3); Blood Urea Nitrogen 17 mg/dL (9-20); CRP 5.9 mg/dL (<1.0); Calcium 8.4 mg/dL (8.4-10.2); Carbon Dioxide 23 mmol/L (22-30); Chloride 105 mmol/L (98-107); Estimated CRCL calculation 151 ml/min; Estimated Glomerular Filt Rate > 60; Glucose 205 mg/dL (65-110); Magnesium 2.1 mg/dL (1.6-2.3); Potassium 3.8 mmol/L (3.4-5.0); Sodium 136 mmol/L (137-145)
[2023-07-25 06:00] VITALS: BP 116/69; PULSE 71; RESP 18; TEMP 36.6; O2SAT 100
[2023-07-25 06:18] LABS: Procalcitonin 0.9 ng/mL
[2023-07-25 06:50] LABS: Erythrocyte Sedimentation Rate 57 mm/hr (0-20)
--- NOTE | 2023-07-25 07:34 | P.DS_ITS ---
DS: Admitting Diagnosis Discharge Date 07/25/23 Admitting Diagnosis Left lower extremity edema DS: Discharge Diagnosis Discharge Diagnosis (1) Sepsis: Qualifiers: Sepsis acute organ dysfunction status: unspecified Sepsis type: sepsis due to unspecified organism Qualified Code(s): A41.9 - Sepsis, unspecified organism Code(s): A41.9 - Sepsis, unspecified organism Status: Acute Assessment and Plan: Lactic acid still elevated s/p IV fluids and initial antibiotics. Escalated antibiotics. Discussed importance managing elevated blood sugar to help clear lactic acidosis. 07/22: Procalcitonin 2.3 this morning, continue IV vancomycin and Rocephin targeting higher vanc trough. Spoke with [facility] pharmacy who agrees with this plan. Will concomitant lead treat for vasculitis after additional labs drawn. 07/23: Labs are normalizing. Lactic has cleared. Procal 1.5 today. Vanc and rocehpin continue today and likely can transition to oral agents tomorrow. Blood cultures with NGTD. (2) Cellulitis of left lower extremity: Code(s): L03.116 - Cellulitis of left lower limb Status: Acute Assessment and Plan: Recurrent problem 07/22: Procalcitonin 2.3 this morning, continue IV vancomycin and Rocephin targeting higher vanc trough. Spoke with [facility] pharmacy who agrees with this plan. Will concomitant lead treat for vasculitis after additional labs drawn. 07/23: See above. (3) Elevated blood sugar: Code(s): R73.9 - Hyperglycemia, unspecified Status: Acute Assessment and Plan: Fingerstick glucose before meals and bedtime, SSI Patient was not able to tolerate metformin in the past Very long discussion held regarding diabetes status and pathophysiology of such 07/22: Patient aware this steroids will cause blood sugar to elevate even further, continue sliding scale insulin while hospitalized. 07/23: Stable. Blood glucose 270 before lunch today after steroid dose. SSI as needed. A1C 7.7% this admission. Recommend starting oral agents at discharge if he is agreeable. (4) Lactic acidosis: Code(s): E87.20 - Acidosis, unspecified Status: Acute Assessment and Plan: Lactic acid still elevated s/p IV fluids and initial antibiotics. Escalated antibiotics. Discussed importance managing elevated blood sugar to help clear lactic acidosis 07/22: Lactic acid 2.2 this morning, I canceled reflex draw. Will check daily with morning labs. 07/23: Lactic has cleared. (5) Morbid obesity due to excess calories: Code(s): E66.01 - Morbid (severe) obesity due to excess calories Status: Acute (6) Personal history of noncompliance with medical treatment and regimen: Code(s): Z91.199 - Patient's noncompliance with other medical treatment and regimen due to unspecified reason Status: Acute Assessment and Plan: Initially patient refusing multiple medications. He still is likely to refuse DVT prophylaxis but is now accepting insulin to keep blood sugars better controlled. 07/22: After long discussion with patient regarding course of care and reasons for each order, patient is much more compliant and appreciative of care provided. 07/23: States he has not been taking his lasix like he should because he has been at the bedside with his grandmother who has been ill the last month. He understands the importance of medication compliance. (7) Vasculitis: Code(s): I77.6 - Arteritis, unspecified Status: Acute Assessment and Plan: 07/22: Extensive lab workup initiated prior to steroid initiation. Patient has recurrent presentat
[2023-07-25 07:41] LABS: Glucose Point of Care 181 mg/dl (65-105)
[2023-07-25] MEDS: DOXYCYCLINE HYCLATE 100 MG TABLET PO (08:36)
[2023-07-25] MEDS: predniSONE 20 MG TABLET 40 MG PO (08:36)
[2023-07-25] MEDS: FUROSEMIDE 80 MG TABLET PO (08:36)
[2023-07-25] MEDS: AMOXICILLIN/CLAVULANATE K 875-125 MG TAB 1 TABLET PO (08:36)
[2023-07-25 09:13] LABS: Cholesterol 138 mg/dL (0-200); HDL Direct 27 mg/dL; Triglycerides 131 mg/dL (<150)
[2023-07-25 09:24] LABS: LDL Cholesterol Direct 92 mg/dL
[2023-07-25 11:49] LABS: Glucose Point of Care 248 mg/dl (65-105)
[2023-07-25 21:49] LABS: Hexagonal Phase Confirm POSITIVE (NEGATIVE); Lupus dRVVT Confirmation NEGATIVE (NEGATIVE); Lupus dRVVT Screen 48 sec (< OR = 45); PTT-LA Screen 42 sec (< OR = 40); Thrombin Clotting Time 15 sec (13-19)
[2023-07-26 03:29] LABS: Anti Cardio Antibody IgM <2.0 MPL-U/mL; Anti Cardiolipin Antibody IgA <2.0 APL-U/mL; Anti Cardiolipin Antibody IgG <2.0 GPL-U/mL
[2023-07-30 19:53] LABS: Factor V (Leiden) Mutation NEGATIVE
== END 2023-07-25 14:15 | disposition home or self-care (01) | DRG 872 ==
LOC: ANHED 07-22 02:01 → ANH3MEDSUR 07-22 02:40
PROVIDERS: Nurse Practitioner; Admitting Provider Family Medicine; Emergency Provider Physician Assistant; PCP Internal Medicine; Visit Provider Nurse Practitioner Acute Care
DX: A41.9 Sepsis, unspecified organism (principal); L03.116 Cellulitis of left lower limb; Z68.43 Body mass index [BMI] 50.0-59.9, adult; E11.9 Type 2 diabetes mellitus without complications; E11.65 Type 2 diabetes mellitus with hyperglycemia; I77.6 Arteritis, unspecified; Z91.199 Patient's noncompliance with other medical treatment and regimen due to unspecified reason; E66.01 Morbid (severe) obesity due to excess calories; F41.8 Other specified anxiety disorders; J44.9 Chronic obstructive pulmonary disease, unspecified
CPT/HCPCS: 36415; 71045; 80048; 80053; 80061; 80202; 81003; 81240; 81241; 81291; 82948; 83036; 83090; 83605; 83735; 83880; 84100; 84145; 85025; 85055; 85303; 85306; 85380; 85610; 85613; 85652; 85730; 86036; 86140; 86147; 86160; 86162; 86430; 87040; 87637; 93971; 96361; 96374; 99285; A9270; G0378; J0690; J0696; J1815; J3370; J7030; J7512